=== PATIENT | male | born 1990 | race Caucasian/White ===

== ENCOUNTER 2023-12-24 22:58 | Emergency (ER) | payer BC ==
[2023-12-24 23:08] VITALS: BP 132/85; PULSE 102; RESP 18; TEMP 99; BMI 25.7
[2023-12-24] MEDS ORDERED: IBUPROFEN 400 MG TABLET (FP) PO ONE (23:21)
[2023-12-24] MEDS ORDERED: LIDOCAINE 4% PATCH TP ONE (23:22)
[2023-12-24] MEDS: IBUPROFEN 400 MG TABLET (FP) PO ONE (23:23)
[2023-12-24] MEDS: LIDOCAINE 4% PATCH TP ONE (23:24)
[2023-12-25] MEDS ORDERED: LIDOCAINE PATCH REMOVAL MC ONE (11:00)
== END 2023-12-24 23:33 | disposition home or self-care (01) ==
LOC: JER 22:58
DX: M79.605 Pain in left leg (principal); M79.652 Pain in left thigh
CPT/HCPCS: 99283-25